=== PATIENT | female | born 2000 | race Caucasian/White ===

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

== ENCOUNTER 2019-04-10 17:34 | Emergency (ER) | payer BC, MEDICAID ==
[~2019-04-10] VITALS: Ht 154.9 cm; Wt 94.1 kg
[2019-04-10 17:45] VITALS: BP 133/81
== END 2019-04-10 19:15 | disposition home or self-care (01) ==
LOC: ED 19:09
DX: H60.502 Unspecified acute noninfective otitis externa, left ear (principal); H60.12 Cellulitis of left external ear; J45.909 Unspecified asthma, uncomplicated
CPT/HCPCS: 99283

== ENCOUNTER 2020-07-29 00:36 | Emergency (ER) | payer BC, OTHER ==
[~2020-07-29] VITALS: Ht 157.5 cm; Wt 93.5 kg
--- NOTE | 2020-07-29 00:43 | NUR ---
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
--- NOTE | 2020-07-29 00:55 | NUR ---
FIRST CONTACT. PAINFUL URINATION X 1 WEEK, +WHITE DISCHARGE.
--- NOTE | 2020-07-29 00:56 | NUR ---
FIANCE AT BEDSIDE. PT UNABLE TO VOID, WATER PROVIDED
--- NOTE | 2020-07-29 01:55 | NUR ---
PT UNABLE TO VOID, IN AND OUT CATH FOR URINALYSIS.
[2020-07-29 02:05] LABS: HCG UR SG 1.018 (1.003-1.030); MICROSCOPIC AUTO
[2020-07-29] MEDS ORDERED: CEFDINIR 300 MG CAPSULE ONE (02:15)
[2020-07-29 02:17] VITALS: BP 129/63
[2020-07-29] MEDS ORDERED: CEFDINIR 300 MG CAPSULE PO ONE (02:30)
== END 2020-07-29 02:38 | disposition home or self-care (01) ==
LOC: ED 01:57
DX: N30.00 Acute cystitis without hematuria (principal); J45.909 Unspecified asthma, uncomplicated
CPT/HCPCS: 81001; 81025; 87077; 87086; 87186; 99283